=== PATIENT | female | born 1965 | race Caucasian/White ===

== ENCOUNTER 2020-06-26 17:34 | Emergency (ER) | payer SELFPAY ==
[2020-06-26] MEDS ORDERED: Mupirocin 2% Ointment 22 GM Tube ONE (17:48)
[2020-06-26] MEDS ORDERED: Clindamycin 150 MG CAP ONE ×2 (17:56)
[2020-06-26] MEDS ORDERED: Morphine 4 MG/ML VIAL ONE (17:56)
== END 2020-06-26 18:35 | disposition home or self-care (01) ==
LOC: MADERS 17:34
DX: J34.0 Abscess, furuncle and carbuncle of nose (principal); F17.200 Nicotine dependence, unspecified, uncomplicated
CPT/HCPCS: 96372; 99283; J2270

== ENCOUNTER 2020-09-04 19:57 | Emergency (ER) | payer SELFPAY | END 2020-09-04 20:29 | disposition home or self-care (01) | LOC: MADERS 19:57 | DX: R23.4 Changes in skin texture (principal); F17.210 Nicotine dependence, cigarettes, uncomplicated | CPT/HCPCS: 99283 ==